=== PATIENT | female | born 1990 | race Caucasian/White ===

== ENCOUNTER 2019-05-03 17:42 | Emergency (ER) | payer OTHER, SELFPAY ==
--- NOTE | 2019-05-03 17:47 | ED.ABDPAIN ---
HPI - Abdominal Pain <Janessa Duckworth PA-C - Last Filed: 05/03/19 20:32> General Chief Complaint: Abdominal Pain Stated Complaint: RUQ pain/nausea today Time Seen by Provider: 05/03/19 17:46 Source: patient Mode of arrival: ambulatory Limitations: no limitations History of Present Illness HPI narrative: This 29-year-old female comes to ED secondary to acute onset of right-sided abdominal pain that awoke her from sleep at 3:00 a.m. She states this seems to be focused under the ribs. She states it feels somewhat like her previous gallbladder attacks, she had her gallbladder out at age 16. She states that she had a couple of episodes of diarrhea last night described as runny stools without blood or or mucus, otherwise felt okay. She ate a late lunch out about 4:00 a.m., not a particularly fatty food. Has not eaten since. She states pain is a little bit better with pushing in on the area, worse with letting go, movement or sitting. She has also had persistent nausea along with this pain and thinks she has vomited 6 times today, not keeping down any food or fluids. She denies any fever. She has not had any urinary symptoms. She denies any chest pain or dyspnea. She denies any pain or swelling in her extremities. She denies any sick contacts, known exposures, recent travel. She denies any new rash or other new complaints on systems review. She denies possibility of , has IUD in place. Related Data Previous Rx's Medication Instructions Recorded ondansetron 4 mg PO Q8H PRN #6 tab 05/03/19 oxycodone-acetaminophen 1 tab PO Q4-6H PRN #7 tab 05/03/19 Allergies Allergy/AdvReac Type Severity Reaction Status Date / Time lamotrigine [From Lamictal] Allergy Verified 05/03/19 17:49 Review of Systems <Janessa Duckworth PA-C - Last Filed: 05/03/19 20:32> Review of Systems ROS Unobtainable: All systems reviewed & are unremarkable except as noted in HPI and below PFSH <Janessa Duckworth PA-C - Last Filed: 05/03/19 20:32> Medical History (Updated 05/03/19 @ 19:12 by Janessa Duckworth PA-C) Depression (Chronic) Surgical History (Updated 05/03/19 @ 18:09 by Janessa Duckworth PA-C) Status post cholecystectomy (Resolved) Social History Smoking Status: Current every day smoker Social History Smoking Status: Current every day smoker Exam <Janessa Duckworth PA-C - Last Filed: 05/03/19 20:32> Narrative Exam Narrative: GENERAL APPEARANCE: Patient sitting comfortably, in no distress. HEENT: PERRL, EOMI, no scleral icterus NECK: Supple LUNGS: Clear to auscultation bilaterally. HEART: Rate and rhythm regular, normal S1 and S2, no S3 or S4. ABDOMEN: Soft, nondistended, +bowel sounds x4 quadrants. Exquisitely tender from right upper quadrant to right lower quadrant with +rebound, no tenderness on the midline or left side. No CVAT EXTREMITIES: No edema, no cyanosis DERMATOLOGIC: No jaundice or exanthem NEUROLOGIC: Alert and oriented with normal speech and coordination Initial Vital Signs Initial Vital Signs: Vital Signs Temperature 98.4 F 05/03/19 17:49 Pulse Rate 84 05/03/19 17:49 Respiratory Rate 20 05/03/19 17:49 Blood Pressure 128/80 05/03/19 17:49 Pulse Oximetry 100 05/03/19 17:49 <Zuleima Rivera DO - Last Filed: 05/04/19 00:47> Initial Vital Signs Initial Vital Signs: Vital Signs Temperature 98.4 F 05/03/19 17:49 Pulse Rate 84 05/03/19 17:49 Respiratory Rate 20 05/03/19 17:49 Blood Pressure 128/80 05/03/19 17:49 Pulse Oximetry 100 05/03/19 17:49 Course <Janessa Duckworth PA-C - Last Filed: 05/03/19 20:32> Additional Information: Patient is feeling markedly improved after medications. She has not had any recurrent vomiting. She had some brief spasm like pain after eating crackers, however after this able to tolerate applesauce and more water without difficulty. Reviewed lab and CT findings including ovarian cyst which is likely the source of her pain though no localized pelvic or suprapubic tenderness on exam. Advised continuing pain medicine, Zofran, return if any acutely worsening symptoms or new symptoms such as fever, and she is agreeable. She agrees to call PCP 1st thing tomorrow to set up follow-up, determine whether referral or more pain medication may be needed. She has a copy of her CT on CD. Orders Ordered: ED Orders 05/03/19 17:50 C-Reactive Protein Quant Stat Complete Blood Count AUTO DIFF Stat Comprehensive Metabolic Panel Stat Lipase Stat 05/03/19 17:55 CT abdomen pelvis w con Stat Urine Culture Stat Urine Microscopic Stat Discontinued Medications Sodium Chloride (Normal Saline 0.9%) 1,000 mls @ 1,000 mls/hr IV CONT DAVE Last Infusion: 05/03/19 19:37 Dose: 0 mls/hr Admin: 05/03/19 18:00 Dose: 1,000 mls/hr Ketorolac Tromethamine (Toradol) 30 mg IV NOW ONE Stop: 05/03/19 17:56 Last Admin: 05/03/19 18:00 Dose: 30 mg Morphine Sulfate (Morphine) 4 mg IV NOW ONE Stop: 05/03/19 17:56 Last Admin: 05/03/19 18:01 Dose: 4 mg Morphine Sulfate (Morphine) 4 mg IV NOW ONE Stop: 05/03/19 19:03 Last Admin: 05/03/19 19:11 Dose: 4 mg Ondansetron HCl (Zofran) 4 mg IV NOW ONE Stop: 05/03/19 17:56 Last Admin: 05/03/19 18:00 Dose: 4 mg Ondansetron HCl (Zofran Odt Prepack) 1 bottle MISC SEEINSTR ONE Stop: 05/03/19 19:29 Last Admin: 05/03/19 20:02 Dose: 1 bottle Oxycodone/Acetaminophen (Endocet 5/325 Prepack) 1 bottle MISC SEEINSTR ONE Stop: 05/03/19 19:29 Last Admin: 05/03/19 20:02 Dose: 1 bottle Vital Signs - 8 hr 05/03/19 17:49 05/03/19 19:14 05/03/19 19:19 Temperature 98.4 F Pulse Rate 84 65 Respiratory Rate 20 20 Blood Pressure 128/80 Blood Pressure [Left Arm] 111/68 Pulse Oximetry 100 97 05/03/19 20:13 Temperature Pulse Rate 63 Respiratory Rate 20 Blood Pressure 103/71 Blood Pressure [Left Arm] Pulse Oximetry 98 <Zuleima Rivera, - Last Filed: 05/04/19 00:47> Orders Ordered: ED Orders 05/03/19 17:50 C-Reactive Protein Quant Stat Complete Blood Count AUTO DIFF Stat Comprehensive Metabolic Panel Stat Lipase Stat 05/03/19 17:55 CT abdomen pelvis w con Stat Urine Culture Stat Urine Microscopic Stat Discontinued Medications Sodium Chloride (Normal Saline 0.9%) 1,000 mls @ 1,000 mls/hr IV CONT DAVE Last Infusion: 05/03/19 19:37 Dose: 0 mls/hr Admin: 05/03/19 18:00 Dose: 1,000 mls/hr Ketorolac Tromethamine (Toradol) 30 mg IV NOW ONE Stop: 05/03/19 17:56 Last Admin: 05/03/19 18:00 Dose: 30 mg Morphine Sulfate (Morphine) 4 mg IV NOW ONE Stop: 05/03/19 17:56 Last Admin: 05/03/19 18:01 Dose: 4 mg Morphine Sulfate (Morphine) 4 mg IV NOW ONE Stop: 05/03/19 19:03 Last Admin: 05/03/19 19:11 Dose: 4 mg Ondansetron HCl (Zofran) 4 mg IV NOW ONE Stop: 05/03/19 17:56 Last Admin: 05/03/19 18:00 Dose: 4 mg Ondansetron HCl (Zofran Odt Prepack) 1 bottle MISC SEEINSTR ONE Stop: 05/03/19 19:29 Last Admin: 05/03/19 20:02 Dose: 1 bottle Oxycodone/Acetaminophen (Endocet 5/325 Prepack) 1 bottle MISC SEEINSTR ONE Stop: 05/03/19 19:29 Last Admin: 05/03/19 20:02 Dose: 1 bottle Vital Signs - 8 hr 05/03/19 17:49 05/03/19 19:14 05/03/19 19:19 Temperature 98.4 F Pulse Rate 84 65 Respiratory Rate 20 20 Blood Pressure 128/80 Blood Pressure [Left Arm] 111/68 Pulse Oximetry 100 97 05/03/19 20:13 Temperature Pulse Rate 63 Respiratory Rate 20 Blood Pressure 103/71 Blood Pressure [Left Arm] Pulse Oximetry 98 MDM - Abdominal Pain <Janessa Duckworth PA-C - Last Filed: 05/03/19 20:32> Lab Data Attestation: I reviewed the patient's lab results. Result diagrams: 05/03/19 17:50 05/03/19 17:50 Lab Results 05/03/19 05/03/19 05/03/19 Range/Units 17:50 17:50 17:55 WBC 8.2 (4.5-11.0) X10^3/uL RBC 4.17 (4.0-5.2) X10^6/uL Hgb 13.0 (12.0-16.0) g/dL Hct 39.0 (36-46) % MCV 93.5 (80-100) fL MCH 31.1 (26-34) PG MCHC 33.3 (30-36) % RDW 13.0 (11.6-14.8) % Plt Count 320 (150-400) X10^3/uL Neut % (Auto) 57.4 (50-75) % Lymph % (Auto) 28.4 (25-40) % Butler % (Auto) 10.1 (3-14) % Eos % (Auto) 3.0 (2-4) % Baso % (Auto) 1.1 (0-2) % Neut # (Auto) 4700 (5816-0726) /uL Lymph # (Auto) 2300 (5166-6700) /uL Butler # (Auto) 800 (0-900) /uL Eos # (Auto) 200 (0-450) /uL Baso # (Auto) 100 (0-100) /uL Sodium 139 (137-145) mmol/L Potassium 4.5 (3.4-5.1) mmol/L Chloride 105 (98-107) mmol/L Carbon Dioxide 24 (22-32) mmol/L BUN 15 (7-17) mg/dL Creatinine 0.40 L (0.52-1.04) mg/dL Estimated GFR > 60.0 (>60) mL/min BUN/Creatinine Ratio 37.5 H (6-22) Glucose 99 (70-100) mg/dL Calcium 10.1 (8.4-10.2) mg/dL Total Bilirubin 0.4 (0.2-1.3) mg/dL AST 23 (14-36) IU/L ALT 7 L (9-52) IU/L Alkaline Phosphatase 52 (38-126) U/L C-Reactive Protein 1.1 H (<1.0) mg/dL Total Protein 7.7 (6.3-8.2) g/dL Albumin 4.4 (3.5-5.0) g/dL Globulin 3.3 (1.7-4.1) g/dL Albumin/Globulin Ratio 1.3 (1.0-2.8) Lipase 57 (23-300) U/L Urine RBC None seen (0-5/HPF) Urine WBC 0-1/hpf (0-5/HPF) Ur Squamous Epith Cells 1-5 /hpf (0-5/HPF) Amorphous Sediment 2+ Urine Bacteria None seen (None) Ur Culture Indicated? Specimen cultured Point of care testing: Point of Care Testing Test Results Negative Urine Dip Bedside Urine Glucose Negative Bedside Urine Bilirubin - Negative Bedside Urine Ketone - Negative Urine Specific [place] 1.015 Bedside Urine Occult Blood - Negative Bedside Urine pH 8.0 Bedside Urine Protein - Negative Bedside Urine Urobilinogen - Negative Bedside Urine Nitrite - Negative Bedside Urine Leukocytes +++ [address] scan - abdomen: Radiologist's impression: 24 Janessa Duckworth PA-C Find Patient Imaging Suraj Kolb 29 F 1990 ACTIVITY DATE EXAM STATUS AUTHOR 05/03/19 17:55 [place] [address] CT Scan Report Signed Patient: Suraj KolbMNR#: [id number] : 1990Acct:[id number] Age/Sex: 29 / FDate of Service: 05/03/19 Loc: ED Accession Number: [id number] Procedure: CT abdomen pelvis w con Ordering Provider: Janessa Duckworth P.A-C PROCEDURE: CT ABDOMEN PELVIS W CON INDICATIONS: RUQ/LQ pain, n/v, had althea, ?appy TECHNIQUE: After the administration of intravenous contrast, 5 mm thick sections acquired from the diaphragm to the symphysis. 5 mm coronal and sagittal reformats were acquired. For radiation dose reduction, the following was used: automated exposure control, adjustment of mA and/or kV according to patient size. COMPARISON: None. FINDINGS: Image quality: Excellent. ABDOMEN: Lung bases: Lung bases are clear. Heart size is normal. Solid organs: Liver is normal in size and enhancement. Gallbladder surgically absent. Biliary system is non dilated. Pancreas enhances normally. Spleen is normal in size and enhancement. No adrenal nodules. Kidneys demonstrate normal size and enhancement, without hydronephrosis. Peritoneum and bowel: Bowel loops demonstrate normal wall thickness and caliber. No free fluid or air. The appendix is normal. Nodes and vessels: No retroperitoneal or mesenteric adenopathy by size criteria. Aorta and inferior vena cava are normal in size. Miscellaneous: No ventral hernias. PELVIS: Genitourinary: Bladder wall thickness is normal. 2.6 cm right adnexal cyst. Intrauterine device is properly positioned. Miscellaneous: No inguinal hernias or adenopathy. Bones: No suspicious bony lesions. No vertebral body compression fractures. IMPRESSION: 1. The appendix is normal. 2. 2.6 cm right adnexal cyst. 3. No free fluid or free air. 4. No dilated loops of bowel. Dictated by: Delicia Christie MD, PhD on 05/03/2019 at 18:46 Approved by: Delicia Christie MD, PhD on 05/03/2019 at 18:49 <Zuleima Rivera DO - Last Filed: 05/04/19 00:47> Lab Data Lab Results 05/03/19 05/03/19 05/03/19 Range/Units 17:50 17:50 17:55 WBC 8.2 (4.5-11.0) X10^3/uL RBC 4.17 (4.0-5.2) X10^6/uL Hgb 13.0 (12.0-16.0) g/dL Hct 39.0 (36-46) % MCV 93.5 (80-100) fL MCH 31.1 (26-34) PG MCHC 33.3 (30-36) % RDW 13.0 (11.6-14.8) % Plt Count 320 (150-400) X10^3/uL Neut % (Auto) 57.4 (50-75) % Lymph % (Auto) 28.4 (25-40) % Butler % (Auto) 10.1 (3-14) % Eos % (Auto) 3.0 (2-4) % Baso % (Auto) 1.1 (0-2) % Neut # (Auto) 4700 (4932-4992) /uL Lymph # (Auto) 2300 (0939-7570) /uL Butler # (Auto) 800 (0-900) /uL Eos # (Auto) 200 (0-450) /uL Baso # (Auto) 100 (0-100) /uL Sodium 139 (137-145) mmol/L Potassium 4.5 (3.4-5.1) mmol/L Chloride 105 (98-107) mmol/L Carbon Dioxide 24 (22-32) mmol/L BUN 15 (7-17) mg/dL Creatinine 0.40 L (0.52-1.04) mg/dL Estimated GFR > 60.0 (>60) mL/min BUN/Creatinine Ratio 37.5 H (6-22) Glucose 99 (70-100) mg/dL Calcium 10.1 (8.4-10.2) mg/dL Total Bilirubin 0.4 (0.2-1.3) mg/dL AST 23 (14-36) IU/L ALT 7 L (9-52) IU/L Alkaline Phosphatase 52 (38-126) U/L C-Reactive Protein 1.1 H (<1.0) mg/dL Total Protein 7.7 (6.3-8.2) g/dL Albumin 4.4 (3.5-5.0) g/dL Globulin 3.3 (1.7-4.1) g/dL Albumin/Globulin Ratio 1.3 (1.0-2.8) Lipase 57 (23-300) U/L Urine RBC None seen (0-5/HPF) Urine WBC 0-1/hpf (0-5/HPF) Ur Squamous Epith Cells 1-5 /hpf (0-5/HPF) Amorphous Sediment 2+ Urine Bacteria None seen (None) Ur Culture Indicated? Specimen cultured Point of care testing: Point of Care Testing Test Results Negative Urine Dip Bedside Urine Glucose Negative Bedside Urine Bilirubin - Negative Bedside Urine Ketone - Negative Urine Specific [place] 1.015 Bedside Urine Occult Blood - Negative Bedside Urine pH 8.0 Bedside Urine Protein - Negative Bedside Urine Urobilinogen - Negative Bedside Urine Nitrite - Negative Bedside Urine Leukocytes +++ 500 Esterase Discharge Plan Departure Patient Disposition: Home Clinical Impression: Ovarian cyst Qualifiers: Laterality: right Qualified Code(s): N83.201 - Unspecified ovarian cyst, right side Discharge Date/Time: 05/03/19 20:14 Interventions: ED Discharge Assessment Last Done: 05/03/19 20:13 Instructions: DI for Ovarian Cyst Activity Restrictions/Additional Instructions: As we talked about, you should return if you have any acutely worsening symptoms, or new symptoms such as fever. Otherwise, please rest at home, take the antinausea medicine and pain pills as you need them (do not drive as the oxycodone/acetaminophen can make you sleepy). We have given you a little bit to take home for tonight and you have a prescription to fill in the morning if needed. Please call your PCP 1st thing in the morning and let them know you were seen here and we would like you to set up follow-up to determine if you need any further testing, medication, or a referral. Prescriptions: New oxycodone-acetaminophen 5-325 mg tablet 1 tab PO Q4-6H PRN (Reason: acute ovarian pain) Qty: 7 RF: 0 ondansetron 4 mg tablet,disintegrating 4 mg PO Q8H PRN (Reason: nausea and vomiting) Qty: 6 RF: 0 Referrals: Rony Velasquez MD [Non-Staff] - <Zuleima Rivera DO - Last Filed: 05/04/19 00:47> Cosign ED Attending Loreeature Attestation: I was immediately available in the department for consultation. Documentation has been reviewed. I agree with assessment and plan.
[2019-05-03 17:49] VITALS: BP 128/80; PULSE 84; RESP 20; TEMP 36.9; O2SAT 100; BMI 33.6
--- NOTE | 2019-05-03 17:55 | DI.CT.S_ITS ---
PROCEDURE: CT ABDOMEN PELVIS W CON INDICATIONS: RUQ/LQ pain, n/v, had althea, ?appy TECHNIQUE: After the administration of intravenous contrast, 5 mm thick sections acquired from the diaphragm to the symphysis. 5 mm coronal and sagittal reformats were acquired. For radiation dose reduction, the following was used: automated exposure control, adjustment of mA and/or kV according to patient size. COMPARISON: None. FINDINGS: Image quality: Excellent. ABDOMEN: Lung bases: Lung bases are clear. Heart size is normal. Solid organs: Liver is normal in size and enhancement. Gallbladder surgically absent. Biliary system is non dilated. Pancreas enhances normally. Spleen is normal in size and enhancement. No adrenal nodules. Kidneys demonstrate normal size and enhancement, without hydronephrosis. Peritoneum and bowel: Bowel loops demonstrate normal wall thickness and caliber. No free fluid or air. The appendix is normal. Nodes and vessels: No retroperitoneal or mesenteric adenopathy by size criteria. Aorta and inferior vena cava are normal in size. Miscellaneous: No ventral hernias. PELVIS: Genitourinary: Bladder wall thickness is normal. 2.6 cm right adnexal cyst. Intrauterine device is properly positioned. Miscellaneous: No inguinal hernias or adenopathy. Bones: No suspicious bony lesions. No vertebral body compression fractures. IMPRESSION: 1. The appendix is normal. 2. 2.6 cm right adnexal cyst. 3. No free fluid or free air. 4. No dilated loops of bowel. Dictated by: Delicia Christie MD, PhD on 05/03/2019 at 18:46 Approved by: Delicia Christie MD, PhD on 05/03/2019 at 18:49
[2019-05-03] MEDS: SODIUM CHLORIDE 0.9% 1,000 ML 1000 ML IV (18:00)
[2019-05-03] MEDS: KETOROLAC 60 MG/2 ML VIAL 30 MG IV (18:00)
[2019-05-03] MEDS: ONDANSETRON 4 MG/2 ML INJ IV (18:00)
[2019-05-03] MEDS: MORPHINE 4 MG/ML INJ IV ×2 (18:01→19:11)
[2019-05-03 18:07] LABS: Bacteria Urine None Seen; RBC Urine None Seen (0-5/HPF)
[2019-05-03 18:07] LABS: Add Manual Diff / Slide Review NO; Basophils Absolute Auto 100 /uL (0-100); Basophils Percent Auto 1.1 % (0-2); Eosinophils Absolute Auto 200 /uL (0-450); Lymphocytes Absolute Auto 2300 /uL (1100-4500); Lymphocytes Percent Auto 28.4 % (25-40); Mean Corpuscular HGB Conc 33.3 % (30-36); Mean Corpuscular Hemoglobin 31.1 PG (26-34); Mean Corpuscular Volume 93.5 fL (80-100); Monocytes Absolute Auto 800 /uL (0-900); Monocytes Percent Auto 10.1 % (3-14); Neutrophils Absolute Auto 4700 /uL (1500-7000); Neutrophils Percent Auto 57.4 % (50-75); Platelet Count 320 X10^3/uL (150-400); Red Blood Cell Count 4.17 X10^6/uL (4.0-5.2); White Blood Cell Count 8.2 X10^3/uL (4.5-11.0)
[2019-05-03 18:23] LABS: Alanine Aminotransferase 7 IU/L (9-52); Albumin 4.4 g/dL (3.5-5.0); Albumin Globulin Ratio 1.3 (1.0-2.8); Alkaline Phosphatase 52 U/L (38-126); Aspartate Aminotransferase 23 IU/L (14-36); BUN Creatinine Ratio 37.5 (6-22); Bilirubin Total 0.4 mg/dL (0.2-1.3); Blood Urea Nitrogen 15 mg/dL (7-17); Calcium 10.1 mg/dL (8.4-10.2); Carbon Dioxide 24 mmol/L (22-32); Chloride 105 mmol/L (98-107); Estimated Glomerular Filt Rate > 60.0 mL/min (>60); Globulin 3.3 g/dL (1.7-4.1); Glucose 99 mg/dL (70-100); Lipase 57 U/L (23-300); Potassium 4.5 mmol/L (3.4-5.1); Sodium 139 mmol/L (137-145); Total Protein 7.7 g/dL (6.3-8.2)
[2019-05-03 18:24] LABS: HEMOLYSIS 58 (0-50)
[2019-05-03 18:38] LABS: C-Reactive Protein Quant 1.1 mg/dL (<1.0)
[2019-05-03 18:43] LABS: Amorphous Sediment Urine 2+; Culture Indicated Urine Specimen Cultured; Squamous Epithelial Cell Urine 1-5 /HPF (0-5/HPF); WBC Urine 0-1/HPF (0-5/HPF)
[2019-05-03 19:14] VITALS: PULSE 65; RESP 20; O2SAT 97
[2019-05-03 19:19] VITALS: BP 111/68
[2019-05-03] MEDS: ONDANSETRON 4 MG ODT PREPACK 1 BOTTLE MISC (20:02)
[2019-05-03] MEDS: OXYCODONE/APAP 5/325 PREPACK 1 BOTTLE MISC (20:02)
[2019-05-03 20:13] VITALS: BP 103/71; PULSE 63; RESP 20; O2SAT 98
== END 2019-05-03 20:14 | disposition home or self-care (01) ==
PROVIDERS: Emergency Provider Internal Medicine
DX: N83.201 Unspecified ovarian cyst, right side (principal)
CPT/HCPCS: 36591; 74177; 80053; 81003; 81015; 81025; 83690; 85025; 86140; 87086; 96361; 96374; 96375; 96376; 99283; 99284; J1885; J2270; J2405; Q9967

== ENCOUNTER 2020-04-12 10:52 | Emergency (ER) | payer OTHER, SELFPAY ==
[2020-04-12 10:56] VITALS: BP 123/79; PULSE 93; RESP 16; TEMP 36.4; O2SAT 99; BMI 34.7
--- NOTE | 2020-04-12 11:21 | DI.RAD.S_ITS ---
PROCEDURE: XR FINGER LT MIN 2V INDICATIONS: lac to the bone TECHNIQUE: AP hand, 2 views of the left thumb were obtained. COMPARISON: None. FINDINGS: Bones: No fractures or dislocations. No suspicious bony lesions. Soft tissues: No suspicious soft tissue calcifications. IMPRESSION: No acute fractures of the left thumb. Dictated by: Jaguar Raymond M.D. on 04/12/2020 at 10:34 Approved by: Jaguar Raymond M.D. on 04/12/2020 at 10:37
--- NOTE | 2020-04-12 11:47 | ED_ITS ---
HPI - Wound/Laceration <VAUGHN Cary - Last Filed: 04/12/20 13:43> General Chief Complaint: Wound/Laceration Stated Complaint: LT thumb cut Time Seen by Provider: 04/12/20 11:00 Source: patient Mode of arrival: Ambulatory Limitations: no limitations History of Present Illness HPI narrative: The patient is a 30-year-old female current smoker with history of ovarian cyst who presents with a chief complaint of a laceration to her left thumb. She states she was cutting sound, and accidentally knocked her thumb the medial aspect along the nail. She states it ?hurts really bad and that the cut ?went to the bone.She states that her tetanus is up-to-date Related Data Previous Rx's Medication Instructions Recorded ondansetron 4 mg PO Q8H PRN #6 tab 05/03/19 oxycodone-acetaminophen 1 tab PO Q4-6H PRN #7 tab 05/03/19 Allergies Allergy/AdvReac Type Severity Reaction Status Date / Time lamotrigine [From Lamictal] Allergy Verified 05/03/19 17:49 Review of Systems <VAUGHN Cary - Last Filed: 04/12/20 13:43> Review of Systems Narrative: GENERAL: Denies chills, fatigue, malaise, fever, sweats. HEENT: Denies sinus pain, ear pain, sore throat, difficulty swallowing, dizziness. RESPIRATORY: Denies dyspnea, cough, wheezing, hemoptysis, sputum. CARDIOVASCULAR: Denies chest pain, palpitations, orthopnea, edema, GASTROINTESTINAL: Denies nausea, vomiting, abdominal pain, diarrhea, constipation, melena. : Denies dysuria, frequency, incontinence, hematuria, urinary retention. MUSCULOSKELETAL: See HPI SKIN: See HPI NEUROLOGIC: Denies weakness, headache, numbness, change in speech, confusion, seizures, incoordination. PSYCHIATRIC: No concerning psychosocial issues. 12 point review of systems is negative except for those stated above Patient History <VAUGHN Cary - Last Filed: 04/12/20 13:43> Medical History Depression (Chronic) Surgical History Status post cholecystectomy (Resolved) Social History Smoking Status: Current every day smoker Smoking Status: Current every day smoker Substance Use Type: does not use Exam <VAUGHN Cary - Last Filed: 04/12/20 13:43> Narrative Exam Narrative: GENERAL: This is a well-nourished, well-developed patient, in no acute distress HEAD: Atraumatic. Normocephalic. No temporal or scalp tenderness. EYES: Pupils equal round and reactive. Extraocular motions intact. No scleral icterus. No injection or drainage. ENT: Nose without bleeding, purulent drainage or septal hematoma. e. Airway patent. NECK: Trachea midline. No JVD or lymphadenopathy. Supple, nontender, no meningeal signs. CARDIOVASCULAR: Regular rate and rhythm without murmurs, gallops, or rubs. RESPIRATORY: No cough. No increased respiratory effort. No accessory muscle use. Speaking full sentences. GASTROINTESTINAL: Abdomen soft, non-tender, nondistended. No hepato- splenomegaly, or palpable masses. No guarding. EXTREMITIES: Laceration as noted in skin exam. Able to flex and extend left 1st digit against resistance. Capillary refill less than 2 seconds. Positive right radial pulse. NEURO: AOx3. SKIN: 0.25 cm laceration noted on medial aspect of tip of left thumb, v-shaped parallel to the nail. No nail bed involvement. No obvious foreign body. Through dermis, Initial Vital Signs Initial Vital Signs: Vital Signs Temperature 97.5 F L 04/12/20 10:56 Pulse Rate 93 H 04/12/20 10:56 Respiratory Rate 16 04/12/20 10:56 Blood Pressure 123/79 04/12/20 10:56 Pulse Oximetry 99 04/12/20 10:56 <Zuleima Rivera DO - Last Filed: 04/13/20 12:14> Initial Vital Signs Initial Vital Signs: Vital Signs Temperature 97.5 F L 04/12/20 10:56 Pulse Rate 93 H 04/12/20 10:56 Respiratory Rate 16 04/12/20 10:56 Blood Pressure 123/79 04/12/20 10:56 Pulse Oximetry 99 04/12/20 10:56 Procedures <VAUGHN Cary - Last Filed: 04/12/20 13:43> Laceration Repair Laceration 1: Site: hand Side (If applicable): left Size (cm): 0.25 Description: flap Depth: simple, single layer Pre-repair: wound explored, irrigated extensively (soaked with Hibiclens) and deep structures intact Skin layer closed with: steri-strips Course <VAUGHN Cary - Last Filed: 04/12/20 13:43> Orders Ordered: ED Orders 04/12/20 11:21 XR finger LT min 2V Stat Vital Signs Vital signs: Vital Signs - 8 hr 04/12/20 10:56 Temperature 97.5 F L Pulse Rate 93 H Respiratory Rate 16 Blood Pressure 123/79 Pulse Oximetry 99 <Zuleima Rivera DO - Last Filed: 04/13/20 12:14> Orders Ordered: ED Orders 04/12/20 11:21 XR finger LT min 2V Stat Vital Signs Vital signs: Vital Signs - 8 hr 04/12/20 10:56 Temperature 97.5 F L Pulse Rate 93 H Respiratory Rate 16 Blood Pressure 123/79 Pulse Oximetry 99 MDM - Wound/Laceration <VAUGHN Cary - Last Filed: 04/12/20 13:43> Imaging Data Extremity x-ray #1: Radiologist's Impression: [address] [place] [address] XRay Report Signed Patient: Suraj Kolb#: [id number] : 1990Acct:[id number] Age/Sex: 30 / FDate of Service: 04/12/20 Loc: ED Accession Number: [id number] Procedure: XR finger LT min 2V Ordering Provider: Nina Mckeon PROCEDURE: XR FINGER LT MIN 2V INDICATIONS: lac to the bone TECHNIQUE: AP hand, 2 views of the left thumb were obtained. COMPARISON: None. FINDINGS: Bones: No fractures or dislocations. No suspicious bony lesions. Soft tissues: No suspicious soft tissue calcifications. IMPRESSION: No acute fractures of the left thumb. Dictated by: Jaguar Raymond M.D. on 04/12/2020 at 10:34 Approved by: Jaguar Raymond M.D. on 04/12/2020 at 10:37 [facility] Narrative Medical decision making narrative: The patient is a 30-year-old female presents with a chief complaint of laceration. Laceration appears superficial on exam. Her tetanus is up-to-date. Patient does have a negative x-ray. I discussed at length monitoring for signs symptoms of infection. Wound was closed as per procedural note. Patient has no questions or concerns upon discharge and states understanding of return precautions as well as follow-up care. Discharge Plan Departure Patient Disposition: Home Clinical Impression: Laceration Discharge Date/Time: 04/12/20 12:05 Instructions: DI for Laceration Repair, DI for Laceration Repair Steri-Strips Activity Restrictions/Additional Instructions: Thank you for trusting us with your care today Please keep your wound clean and dry. Monitor for signs and symptoms of infection such as redness swelling and pus. Please come back to the emergency department for any acute concerns Please follow-up with primary care provider in the next few days Prescriptions: No Action oxycodone-acetaminophen 5-325 mg tablet 1 tab PO Q4-6H PRN (Reason: acute ovarian pain) Qty: 7 RF: 0 ondansetron 4 mg tablet,disintegrating 4 mg PO Q8H PRN (Reason: nausea and vomiting) Qty: 6 RF: 0 Referrals: Rony Velasquez MD [Primary Care Provider] - <Zuleima Rivera DO - Last Filed: 04/13/20 12:14> Cosign ED Attending Loreeature Attestation: I was immediately available in the department for consultation. Documentation has been reviewed. I agree with assessment and plan.
== END 2020-04-12 12:05 | disposition home or self-care (01) ==
PROVIDERS: Emergency Provider Nurse Practitioner Family; PCP Family Medicine
DX: S61.012A Laceration without foreign body of left thumb without damage to nail, initial encounter (principal); W45.0XXA Nail entering through skin, initial encounter
CPT/HCPCS: 73140; 99283

== ENCOUNTER 2020-10-17 09:57 | Emergency (ER) | payer OTHER, SELFPAY ==
[2020-10-17 10:06] VITALS: BP 120/80; PULSE 92; RESP 14; TEMP 36.8; O2SAT 100; BMI 34.7
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
[2020-10-17 11:38] VITALS: BP 121/76; PULSE 73; RESP 15; O2SAT 99
== END 2020-10-17 11:39 | disposition home or self-care (01) ==
PROVIDERS: Emergency Provider Nurse Practitioner; PCP Family Medicine
DX: S02.2XXA Fracture of nasal bones, initial encounter for closed fracture (principal); W50.0XXA Accidental hit or strike by another person, initial encounter
CPT/HCPCS: 99281

== ENCOUNTER 2022-12-17 18:12 | Emergency (ER) | payer OTHER, SELFPAY ==
[2022-12-17 18:29] VITALS: BP 126/65; PULSE 85; RESP 18; TEMP 37.7; O2SAT 98; BMI 32.9
[2022-12-17 18:41] VITALS: TEMP 37.7
[2022-12-17] MEDS: ACETAMINOPHEN 325 MG TABLET 975 MG PO (18:41)
[2022-12-17 19:29] LABS: Influenza A - CEPHEID Flu A NEGATIVE (NEGATIVE); Influenza B - CEPHEID Flu B NEGATIVE (NEGATIVE); Respiratory Syncytial Virus Negative (Negative)
--- NOTE | 2022-12-17 20:09 | PC.NURSE ---
patient brought back to room 3a. patient states i just want my results so that I can go, I need to lay down.
--- NOTE | 2022-12-17 20:11 | PC.NURSE ---
I went back and told the patient that we were still waiting on results. patient states I am just going to go its been over an hour. patient then walks out of the department. charge and dr castillo aware.
[2022-12-17 20:57] LABS: COVID-19 CEPHEID 4-PLEX PCR POSITIVE (Negative)
== END 2022-12-17 20:16 | disposition left against medical advice (07) ==
PROVIDERS: Emergency Medicine; PCP Family Medicine; Visit Provider Emergency Medicine
DX: U07.1 COVID-19 (principal)
CPT/HCPCS: 0241U; 99283

== ENCOUNTER 2024-11-08 15:06 | Emergency (ER) | payer OTHER, SELFPAY ==
[2024-11-08 15:19] VITALS: BP 118/72; PULSE 108; RESP 18; TEMP 36.2; O2SAT 95; BMI 31.6
--- NOTE | 2024-11-08 15:25 | DI.RAD.S_ITS ---
PROCEDURE: XR CHEST 1V INDICATIONS: cough TECHNIQUE: One view of the chest was acquired. COMPARISON: None. FINDINGS: Surgical changes and devices: None. Lungs and pleura: Bilateral lower lobe opacification, possibly in the posterior segments, greater on the left. No pleural effusions or pneumothorax. Mediastinum: Mediastinal contours appear normal. Heart size is normal. Bones and chest wall: No suspicious bony lesions. Overlying soft tissues appear unremarkable. IMPRESSION: Bilateral lower lobe segmental pneumonia. Dictated by: Fabien Castle M.D. on 11/08/2024 at 16:02 Approved by: Fabien Castle M.D. on 11/08/2024 at 16:03
[2024-11-08 15:47] LABS: Strep Grp A by PCR Rapid Negative (Negative)
--- NOTE | 2024-11-08 16:39 | ED.URI ---
HPI - URI/Sore Throat <Kathy Briggs PA-C - Last Filed: 11/08/24 17:20> General Chief Complaint: Upper Respiratory Symptoms Stated Complaint: flu for over 1wk; not getting better Time Seen by Provider: 11/08/24 16:32 Source: patient Mode of arrival: Ambulatory History of Present Illness HPI Narrative: Ms. Quintanilla is a very pleasant 34-year-old female with a past medical history of hysterectomy, anxiety on Prozac who presents to the emergency department for upper respiratory symptoms x1 week. Patient has had intermittent fevers and worsening cough over the last week. She also has pain in her throat and chest wall from aggressive coughing. She was seen at [facility] walk-in clinic few days ago and was prescribed intranasal steroid and albuterol inhaler with no relief in symptoms. She has been hearing a crackling sound in her breathing at night. Denies abdominal pain, nausea, vomiting, diarrhea, dysuria. She does vape daily. No antibiotic allergies. Related Data Previous Rx's Medication Instructions Recorded ondansetron 4 mg disintegrating 4 mg PO Q8H PRN nausea and 05/03/19 tablet vomiting #6 tabs oxycodone-acetaminophen 5 mg-325 1 tab PO Q4-6H PRN acute ovarian 05/03/19 mg tablet pain #7 tabs doxycycline hyclate 100 mg capsule 100 mg PO BID 5 days #10 caps 11/08/24 Allergies Allergy/AdvReac Type Severity Reaction Status Date / Time lamotrigine [From Lamictal] AdvReac Rash Verified 11/08/24 15:19 Review of Systems <Kathy Briggs PA-C - Last Filed: 11/08/24 17:20> Review of Systems ROS Unobtainable: All systems reviewed & are unremarkable except as noted in HPI and below Patient History <Kathy Briggs PA-C - Last Filed: 11/08/24 17:20> Medical History (Updated 11/08/24 @ 17:18 by Kathy Briggs PA-C) Depression Surgical History Status post cholecystectomy Social History Smoking Status: Current every day smoker Smoking Status: Current every day smoker tobacco type: vaping alcohol intake frequency: 0-2 drinks per day Exam <Kathy Briggs PA-C - Last Filed: 11/08/24 17:20> Narrative Exam Narrative: GENERAL: 34 year old patient appears stated age. Well-developed patient, in no acute distress. HEAD: Atraumatic. Normocephalic. ENT: Normal TMs bilaterally. Nose without bleeding, purulent drainage. Throat without erythema, tonsillar hypertrophy or exudate. Airway patent. NECK: Trachea midline. Cervical ROM intact. CARDIOVASCULAR: Increased rate and regular rhythm. RESPIRATORY: ?Nonlabored respirations. ?Speaking in clear, full sentences. Frequent dry cough. Inspiratory and expiratory coarse breath sounds throughout however most noticeable in the left lower lobe. No wheezing. EXTREMITIES: No edema or joint tenderness. NEURO: AOx3. ?Clear speech. ?Moves all 4 extremities appropriately. SKIN: No rash or erythema of visible areas Initial Vital Signs Initial Vital Signs: Vital Signs Temperature 97.1 F L 11/08/24 15:19 Pulse Rate 108 H 11/08/24 15:19 Respiratory Rate 18 11/08/24 15:19 Blood Pressure 118/72 11/08/24 15:19 Pulse Oximetry 95 11/08/24 15:19 Oxygen Delivery Method Room Air 11/08/24 15:19 <Nina Dasilva MD - Last Filed: 11/08/24 17:45> Initial Vital Signs Initial Vital Signs: Vital Signs Temperature 97.1 F L 11/08/24 15:19 Pulse Rate 108 H 11/08/24 15:19 Respiratory Rate 18 11/08/24 15:19 Blood Pressure 118/72 11/08/24 15:19 Pulse Oximetry 95 11/08/24 15:19 Oxygen Delivery Method Room Air 11/08/24 15:19 Course <Kathy Briggs PA-C - Last Filed: 11/08/24 17:20> Orders Ordered: ED Orders 11/08/24 15:25 XR chest 1V Stat 11/08/24 15:28 Strep Grp A by PCR Rapid Stat Discontinued Medications Acetaminophen (Acetaminophen 325 Mg Tablet) 975 mg PO NOW ONE Stop: 11/08/24 16:54 Last Admin: 11/08/24 17:03 Dose: 975 mg Documented By: SVEN Doxycycline Hyclate (Doxycycline Hyclate 100 Mg Tablet) 100 mg PO NOW ONE Stop: 11/08/24 16:54 Last Admin: 11/08/24 17:02 Dose: 100 mg Documented By: SB Vital Signs Vital signs: Vital Signs - 8 hr 11/08/24 15:19 11/08/24 17:07 Temperature 97.1 F L 98.5 F Pulse Rate 108 H 89 Respiratory Rate 18 18 Blood Pressure 118/72 111/66 Pulse Oximetry 95 96 Oxygen Delivery Method Room Air Room Air <Nina Dasilva MD - Last Filed: 11/08/24 17:45> Orders Ordered: ED Orders 11/08/24 15:25 XR chest 1V Stat 11/08/24 15:28 Strep Grp A by PCR Rapid Stat Discontinued Medications Acetaminophen (Acetaminophen 325 Mg Tablet) 975 mg PO NOW ONE Stop: 11/08/24 16:54 Last Admin: 11/08/24 17:03 Dose: 975 mg Documented By: SB Doxycycline Hyclate (Doxycycline Hyclate 100 Mg Tablet) 100 mg PO NOW ONE Stop: 11/08/24 16:54 Last Admin: 11/08/24 17:02 Dose: 100 mg Documented By: SB Vital Signs Vital signs: Vital Signs - 8 hr 11/08/24 15:19 11/08/24 17:07 Temperature 97.1 F L 98.5 F Pulse Rate 108 H 89 Respiratory Rate 18 18 Blood Pressure 118/72 111/66 Pulse Oximetry 95 96 Oxygen Delivery Method Room Air Room Air MDM - URI/Sore Throat <Kathy Briggs PA-C - Last Filed: 11/08/24 17:20> Medical Records Attestation: I reviewed the patient's medical records. Lab Data Labs: Lab Results 11/08/24 Range/Units 15:28 Group A Strep (PCR) Negative (Negative) Imaging Data Chest x-ray: Radiologist's Impression: PROCEDURE: XR CHEST 1V INDICATIONS: cough TECHNIQUE: One view of the chest was acquired. COMPARISON: None. FINDINGS: Surgical changes and devices: None. Lungs and pleura: Bilateral lower lobe opacification, possibly in the posterior segments, greater on the left. No pleural effusions or pneumothorax. Mediastinum: Mediastinal contours appear normal. Heart size is normal. Bones and chest wall: No suspicious bony lesions. Overlying soft tissues appear unremarkable. IMPRESSION: Bilateral lower lobe segmental pneumonia. MDM Narrative Medical decision making narrative: 34-year-old female with a past medical history of hysterectomy, anxiety on Prozac who presents to the emergency department for upper respiratory symptoms x1 week. Differential diagnosis includes but isn't limited to pneumonia, viral syndrome, bronchitis, pharyngitis, etc. On exam the patient is in no acute distress, nontoxic appearing, normal blood pressure, normal respirations, O2 95% on room air, afebrile, heart rate slightly elevated at 108. Physical exam reveals coarse breath sounds throughout most prominent in the left side. Chest x-ray and strep swab were obtained in triage. Strep swab was negative. Chest x-ray does reveal bilateral lower lobe segmental pneumonia. We will treat patient as community-acquired pneumonia with no significant comorbidities with doxycycline b.i.d. x5 days given high community prevalence of mycoplasma pneumonia at this time. Patient given 1st dose of antibiotic in the ED along with acetaminophen. She is feeling much better, vital signs improved and all within normal limits. Recommended rest, hydration, ibuprofen/acetaminophen as needed for fevers or pain, return to ED with any new or worsening symptoms, PCP follow up. Antibiotics sent to pharmacy of choice. Work note provided. Patient is stable for discharge home. <Nina Dasilva MD - Last Filed: 11/08/24 17:45> Lab Data Labs: Lab Results 11/08/24 Range/Units 15:28 Group A Strep (PCR) Negative (Negative) Discharge Plan Departure Patient Disposition: Home Clinical Impression: Pneumonia Qualifiers: Pneumonia type: due to unspecified organism Laterality: bilateral Lung location: lower lobe of lung Qualified Code(s): J18.9 - Pneumonia, unspecified organism Instructions: DI for Pneumonia -- Adult Activity Restrictions/Additional Instructions: Dear Ms. Quintanilla, Thank you for coming into the emergency department. Today you were diagnosed with pneumonia which is an infection of the lung. Please complete the full course of antibiotics, rest, hydrate, use ibuprofen/acetaminophen as needed for pain and fevers and return to the emergency department if you develop any new or worsening symptoms, otherwise follow up with your primary care doctor. Warm tea and honey can be very beneficial for your throat as well. Please take Ibuprofen (Motrin/Advil) or Acetaminophen (Tylenol) for pain. These are available over the counter. You may take Ibuprofen 600 mg every 8 hours with food for pain. You may also take Acetaminophen 650 mg every 4-6 hours for pain. Do not exceed 3000 mg of Tylenol a day as this can cause liver damage. Do not drink alcohol with either of these medications. Please follow up with your primary care doctor within the next 2-3 days for ER follow-up. (If you do not have a PCP you can call [phone]. ?to schedule an appointment with an [facility] Primary Care Provider) IF YOU DEVELOP ANY NEW OR WORSENING SYMPTOMS, RETURN TO THE ER! Please read the attached instructions, they highlight more specific treatments and interventions for you at home. Thank you for letting me participate in your care, Kathy Briggs PA-C Prescriptions: New doxycycline hyclate 100 mg capsule 100 mg PO BID 5 Days Qty: 10 0RF No Action oxycodone-acetaminophen 5-325 mg tablet 1 tab PO Q4-6H PRN (Reason: acute ovarian pain) Qty: 7 0RF Rx Instructions: do not drive ondansetron 4 mg tablet,disintegrating 4 mg PO Q8H PRN (Reason: nausea and vomiting) Qty: 6 0RF Referrals: Rony Velasquez MD [Primary Care Provider] - Stand Alone Forms: Patient Portal/API/Survey, Work Release Note ED Sign-out <Nina Dasilva MD - Last Filed: 11/08/24 17:45> Cosign ED Attending Cosignature Attestation: I did not see this patient. I was available all times for consultation.
[2024-11-08] MEDS: DOXYCYCLINE HYCLATE 100 MG TABLET PO (17:02)
[2024-11-08] MEDS: ACETAMINOPHEN 325 MG TABLET 975 MG PO (17:03)
[2024-11-08 17:07] VITALS: BP 111/66; PULSE 89; RESP 18; TEMP 36.9; O2SAT 96
== END 2024-11-08 17:22 | disposition home or self-care (01) ==
PROVIDERS: Emergency Medicine; Emergency Provider Physician Assistant; PCP Family Medicine
DX: J18.9 Pneumonia, unspecified organism (principal); R05.9 Cough, unspecified; J02.9 Acute pharyngitis, unspecified; R07.89 Other chest pain; F17.290 Nicotine dependence, other tobacco product, uncomplicated
CPT/HCPCS: 71045; 87651; 99283